=== PATIENT | female | born 2000 | race Caucasian/White ===

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

== ENCOUNTER 2020-06-07 13:07 | Emergency (ER) | payer BC, OTHER ==
[~2020-06-07] VITALS: Ht 165.1 cm; Wt 58.3 kg
[~2020-06-07 13:07] MED LIST: ALBU2.5V8 IH; AZIT250T PO; IPRA3AMP29 NEB; PRED20TA PO
--- NOTE | 2020-06-07 14:19 | PHYS DOC ---
Past History Past Medical History: Anxiety, Depression Past Surgical History: Other Additional Past Surgical Histo: wisdom teeth Alcohol Use: None Adult General Chief Complaint Chief Complaint: SUICIDAL IDEATION [facility] HPI Patient is a 19F with a known past medical history of anxiety and depression now presenting to emergency department complaining new onset of suicidal ideation and depression. Patient is over the last month and a half she is having worsening sensations of depression suicidality without a definitive plan. Patient was previously on Zoloft and lorazepam but this was discontinued a year ago when her symptoms had improved. Patient notes that she is been having worsening symptoms and is been attempting to obtain psychiatric evaluation however the soonest appointment she can get is in 6 weeks. Patient was hoping to get evaluated sooner so she can get antidepressive medications. Patient is currently denying any chest pain, nausea, vomiting, fever, chills, headache, lightheadedness or dizziness. Review of Systems Review of Systems Constitutional: Denies fever or chills [] Eyes: Denies change in visual acuity, redness, or eye pain [] HENT: Denies nasal congestion or sore throat [] Respiratory: Denies cough or shortness of breath [] Cardiovascular: No additional information not addressed in HPI [] GI: Denies abdominal pain, nausea, vomiting, bloody stools or diarrhea [] : Denies dysuria or hematuria [] Musculoskeletal: Denies back pain or joint pain [] Integument: Denies rash or skin lesions [] Neurologic: Denies headache, focal weakness or sensory changes [] Endocrine: Denies polyuria or polydipsia [] All other systems were reviewed and found to be within normal limits, except as documented in this note. Allergies Allergies Allergies Coded Allergies Type Severity Reaction Last Updated Verified No Known Drug Allergies 06/07/17 No Physical Exam Physical Exam Constitutional: Well developed, well nourished, no acute distress, non-toxic appearance. [] HENT: Normocephalic, atraumatic, bilateral external ears normal, oropharynx moist, no oral exudates, nose normal. [] Eyes: PERRLA, EOMI, conjunctiva normal, no discharge. [] Neck: Normal range of motion, no tenderness, supple, no stridor. [] Cardiovascular:Heart rate regular rhythm, no murmur [] Lungs & Thorax: Bilateral breath sounds clear to auscultation [] Abdomen: Bowel sounds normal, soft, no tenderness, no masses, no pulsatile masses. [] Skin: Warm, dry, no erythema, no rash. [] Back: No tenderness, no CVA tenderness. [] Extremities: No tenderness, no cyanosis, no clubbing, ROM intact, no edema. [] Neurologic: Alert and oriented X 3, normal motor function, normal sensory function, no focal deficits noted. [] Psychologic: Affect normal, judgement normal, mood normal. [] Current Patient Data Vital Signs Vital Signs Date Time Temp Pulse Resp B/P (MAP) Pulse Ox O2 Delivery O2 Flow Rate FiO2 06/07/20 13:52 98.6 97 18 118/77 (91) 98 Room Air EKG EKG [] Radiology/Procedures Radiology/Procedures [] Heart Score Risk Factors: Risk Factors: DM, Current or recent (<one month) smoker, HTN, HLP, family history of CAD, obesity. Risk Scores: Risk Factors: DM, Current or recent (<one month) smoker, HTN, HLP, family history of CAD, obesity. Course & Med Decision Making Course & Med Decision Making Pertinent Labs and Imaging studies reviewed. (See chart for details) 19f presenting the emergency department with generalized depression and feelings of suicidality without an obvious plan. PAT evaluation completed and a safety plan was completed and the patient is planning to follow-up with her side. No indication for an acute admission. Patient and her mother both verbalized agreement with discharge plan Dragon Disclaimer Dragon Disclaimer This electronic medical record was generated, in whole or in part, using a voice recognition dictation system. Departure Departure: Impression: Primary Impression: Depression Additional Impression: Anxiety Disposition: 01 DC HOME SELF CARE/HOMELESS Condition: GOOD Referrals: PCP,NO (PCP) Patient Instructions: Depression, Adult Additional Instructions: EMERGENCY DEPARTMENT GENERAL DISCHARGE INSTRUCTIONS Thank you for coming to [facility] Emergency Department (ED) today and trusting us with you care. We trust that you had a positive experience in our Emergency Department. If you wish to speak to the department management, you may call the Director at [phone]. YOUR FOLLOW UP INSTRUCTIONS ARE FOLLOWS: 1. Do you have a private Doctor? If you do not have a private doctor, please ask for a resource list of physicians or clinics that may be able to assist you with follow up care. 2. The Emergency Physicain has interpreted your x-rays. The X-Ray specialist will also review them. If there is a change in the findings, you will be notified in 48 hours when at all possible. 3. A lab test or culture has been done, your results will be reviewed and you will be notified if you need a change in treatment. ADDITIONAL INSTRUCTIONS AND INFORMATION: 1. Your care today has been supervised by a physician who is specially trained in emergency care. Many problems require more than one evaluation for a complete diagnosis and treatment. We recommend that you schedule your follow up appointment as recommended to ensure complete treatment of you illness or injury. If you are unable to obtain follow up care and continue to have a problem, or if your condition worsens, we recommend that you return to the ED. 2. We are not able to safely determine your condition over the phone nor are we able to give sound medical advice over the phone. For these safety reasons, if you call for medical advice we will ask you to come to the ED for further evaluation. 3. If you have any questions regarding these discharge instructions please call the ED at [phone]. SAFETY INFORMATION: In the interest of safety, wellness, and injury prevention; we encourage you to wear your sealbelt, if you smoke; quite smoking, and we encourage family to use a protective helmet for bicycling and other sporting events that present an increased risk for head injury. IF YOUR SYMPTOMS WORSEN OR NEW SYMPTOMS DEVELOP, OR YOU HAVE CONCERNS ABOUT YOUR CONDITION; OR IF YOUR CONDITION WORSENS WHILE YOU ARE WAITING FOR YOUR FOLLOW UP APPOINTMENT; EITHER CONTACT YOUR PRIMARY CARE DOCTOR, THE PHYSICIAN WHOSE NAME AND NUMBER YOU WERE GIVEN, OR RETURN TO THE ED IMMEDIATELY. Problem Qualifiers JOSUE LUTZ MD Jun 07, 2020 14:19
[2020-06-07] MEDS ORDERED: LORazepam 1 MG TABLET PO ONE (14:30)
[2020-06-07 15:35] VITALS: BP 133/77
== END 2020-06-07 15:40 | disposition home or self-care (01) ==
LOC: ER 13:07
DX: F32.9 Major depressive disorder, single episode, unspecified (principal); F41.9 Anxiety disorder, unspecified
CPT/HCPCS: 99281

== ENCOUNTER 2020-10-31 11:58 | Emergency (ER) | payer OTHER ==
[~2020-10-31] VITALS: Ht 165.1 cm; Wt 58.3 kg
--- NOTE | 2020-10-31 12:28 | PHYS DOC ---
Past History Past Medical History: Anxiety, Depression (ETHEL VILLASENOR APRN) Past Surgical History: Other Additional Past Surgical Histo: wisdom teeth (ETHEL VILLASENOR APRN) Alcohol Use: None (ETHEL VILLASENOR APRN) General Adult EDM: Chief Complaint: SUICIDAL IDEATION HPI: HPI: Patient is a 19-year-old female who presents to the ER today with her mother for suicidal ideation. Patient reports that she lives with her boyfriend and her boyfriend's parents and her and her boyfriend have been fighting lately and told her that they needed to take a break and he has not been to their home since Sunday. She reports following this she started having increased anxiety and pression. Patient does not have a plan of how she would hurt herself. She does practice self-harm by cutting her wrists and punching herself. She has no attempts of suicide in the past. Patient takes Zoloft. She reports having a appointment at the [facility] on November 10 but has not followed up outpatient anywhere previously. Patient reports that she did not take her Zoloft today. She denies homicidal ideation. Patient has no physical complaints at this time. (ETHEL VILLASENOR APRN) Review of Systems: Review of Systems: 14 body systems of the review of systems have been reviewed. See HPI for pertinent positive and negative responses, otherwise all other systems are negative, nonpertinent or noncontributory (ETHEL VILLASENOR APRN) Allergies: Allergies: Allergies Coded Allergies Type Severity Reaction Last Updated Verified No Known Drug Allergies 06/07/17 No (ETHEL VILLASENOR APRN) Physical Exam: PE: Constitutional: Well developed, well nourished, no acute distress, non-toxic appearance. [] HENT: Normocephalic, atraumatic Eyes: PERRL, conjunctiva normal, no discharge. [] Neck: Normal range of motion, no stridor Cardiovascular:Heart rate regular rhythm, no murmur [] Lungs & Thorax: Bilateral breath sounds clear to auscultation [] Skin: Warm, dry, no erythema, no rash. [] Back: No tenderness, normal range of motion [] Extremities: No tenderness, no cyanosis, no clubbing, ROM intact, no edema. [] Neurologic: Alert and oriented X 3, normal motor function, normal sensory function, no focal deficits noted. [] Psychologic: Judgment normal, patient is emotionally upset and is crying at this time (ETHEL VILLASENOR APRN) Current Patient Data: Labs: Laboratory Tests Test 10/31/20 12:10 10/31/20 13:02 White Blood Count 7.0 x10^3/uL Red Blood Count 4.50 x10^6/uL Hemoglobin 13.6 g/dL Hematocrit 40.2 % Mean Corpuscular Volume 89 fL Mean Corpuscular Hemoglobin 30 pg Mean Corpuscular Hemoglobin Concent 34 g/dL Red Cell Distribution Width 13.0 % Platelet Count 311 x10^3/uL Neutrophils (%) (Auto) 84 % Lymphocytes (%) (Auto) 13 % Monocytes (%) (Auto) 4 % Eosinophils (%) (Auto) 0 % Basophils (%) (Auto) 0 % Neutrophils # (Auto) 5.9 x10^3uL Lymphocytes # (Auto) 0.9 x10^3/uL Monocytes # (Auto) 0.2 x10^3/uL Eosinophils # (Auto) 0.0 x10^3/uL Basophils # (Auto) 0.0 x10^3/uL Urine Collection Type Unknown Urine Color Yellow Urine Clarity Clear Urine pH 6.0 Urine Specific [place] >=1.030 Urine Protein 30 mg/dl Urine Glucose (UA) Neg mg/dL Urine Ketones (Stick) >=160 mg/dL Urine Blood Trace Urine Nitrite Neg Urine Bilirubin Small Urine Urobilinogen Dipstick 0.2 mg/dL Urine Leukocyte Esterase Neg Urine RBC 0 /HPF Urine WBC Occ /HPF Urine Squamous Epithelial Cells Mod /LPF Urine Bacteria Few /HPF Sodium Level 141 mmol/L Potassium Level 4.0 mmol/L Chloride Level 105 mmol/L Carbon Dioxide Level 19 mmol/L Anion Gap 17 Blood Urea Nitrogen 22 mg/dL Creatinine 0.8 mg/dL Estimated GFR (Cockcroft-Gault) 92.4 BUN/Creatinine Ratio 28 Glucose Level 75 mg/dL Calcium Level 9.0 mg/dL Total Bilirubin 0.8 mg/dL Aspartate Amino Transf (AST/SGOT) 13 U/L Alanine Aminotransferase (ALT/SGPT) 17 U/L Alkaline Phosphatase 56 U/L Total Protein 7.6 g/dL Albumin 4.3 g/dL Albumin/Globulin Ratio 1.3 Bedside Urine HCG, Qualitative hcg negative Current Medications Medications (Trade) Dose Ordered Sig/Andrei Route PRN Reason Start Time Stop Time Status Last Admin Dose Admin Lorazepam (Ativan) 1 mg 1X ONCE PO 10/31/20 12:30 10/31/20 12:42 DC 10/31/20 12:47 (ETHEL VILLASENOR APRN) EKG: EKG: EKG performed at 1523 by ER staff shows sinus tach, no STEMI by Dr. Medina at 1529. (ETHEL VILLASENOR APRN) Radiology/Procedures: Radiology/Procedures: [] (ETHEL VILLASENOR APRN) Heart Score: C/O Chest Pain: No Risk Factors: Risk Factors: DM, Current or recent (<one month) smoker, HTN, HLP, family history of CAD, obesity. Risk Scores: Score 0 - 3: 2.5% MACE over next 6 weeks - Discharge Home Score 4 - 6: 20.3% MACE over next 6 weeks - Admit for Clinical Observation Score 7 - 10: 72.7% MACE over next 6 weeks - Early Invasive Strategies (ETHEL VILLASENOR APRN) Course & Med Decision Making: Course & Med Decision Making Pertinent Labs and Imaging studies reviewed. (See chart for details) 19-year-old female who presents to the ER for suicidal ideation. Screening lab work was performed in the ER. PAT team evaluated patient in the ER. Lab work in the ER was unremarkable. Quinn with the PAT team discussed discharging the patient to [facility] for medication stabilization but patient reported that she would leave as soon as she got there. At this time we are attempting to get patient admitted to [facility] or [facility]. 2105: Patient was admitted under the service of Dr. Anthony at [facility]. Care transferred at this time. (ETHEL VILLASENOR APRN) Course & Med Decision Making Did not see or evaluate patient. Agree with TEACHING ARTIST's work-up and disposition per note. (MAHESH PAGAN MD) Nicolas Disclaimer: Nicolas Disclaimer: This electronic medical record was generated, in whole or in part, using a voice recognition dictation system. (ETHEL VILLASENOR APRN) Departure Departure: Impression: Primary Impression: Suicidal ideation Disposition: 02 SHORT TERM HOSPITAL Condition: GOOD Referrals: PCP,NO (PCP) ETHEL VILLASENOR APRN Oct 31, 2020 12:27 MAHESH PAGAN MD Nov 01, 2020 00:43
[2020-10-31] MEDS ORDERED: LORazepam 1 MG TABLET PO ONE ×2 (12:30→20:00)
[2020-10-31 13:18] LABS: BASO % 0 % (0-3); EOS % 0 % (0-3); HEMATOCRIT 40.2 % (36.0-47.0); HEMOGLOBIN 13.6 g/dL (12.0-15.5); LYMPH # 0.9 x10^3/uL (1.0-4.8); LYMPH % 13 % (24-48); MEAN CORPUSCULAR HEMOGLOBIN 30 pg (25-35); MEAN CORPUSCULAR HGB CONC 34 g/dL (31-37); MEAN CORPUSCULAR VOLUME 89 fL (79-100); MONO # 0.2 x10^3/uL (0.0-1.1); MONO % 4 % (0-9); NEUT # 5.9 x10^3uL (1.8-7.7); NEUT % 84 % (31-73); PLATELET COUNT 311 x10^3/uL (140-400)
[2020-10-31 13:23] LABS: CREATININE 0.8 mg/dL (0.6-1.0); GFR 92.4
[2020-10-31 13:29] LABS: ALBUMIN 4.3 g/dL (3.4-5.0); ALBUMIN/GLOBULIN RATIO 1.3 (1.0-1.7); TOTAL BILIRUBIN 0.8 mg/dL (0.2-1.0); TOTAL PROTEIN 7.6 g/dL (6.4-8.2)
[2020-10-31 13:32] LABS: BILIRUBIN,URINE SMALL (NEG); CLARITY,URINE CLEAR; COLOR,URINE YELLOW; GLUCOSE,URINE NEG (NEG)
[2020-10-31 13:33] LABS: NITRITE,URINE NEG (NEG); UROBILINOGEN,URINE 0.2 mg/dL (0.2 mg/dL)
[2020-10-31 13:34] LABS: BACTERIA,URINE FEW /HPF (0-FEW); RBC,URINE 0 /HPF (0-2); SQUAMOUS EPITHELIAL CELL,UR MOD /LPF; WBC,URINE OCC /HPF (0-4)
--- NOTE | 2020-10-31 15:32 | EKG ---
[address] [address] Test Date: 2020-10-31 Test Time: 15:23:17 Pat Name: ISAMAR YANES Department: Room: Gender: F Tire Service Supervisor: DIAN : 2000 Requested By: ETHEL VILLASENOR Order Number: [id number] Reading MD: Measurements Intervals [place] Rate: 106 P: 26 [place]: 118 QRS: 16 QRSD: 104 T: 38 QT: 354 QTc: 472 Interpretive Statements SINUS TACHYCARDIA S1,S2,S3 PATTERN INCOMPLETE RIGHT BUNDLE BRANCH BLOCK CONSIDER RIGHT VENTRICULAR HYPERTROPHY POSSIBLY ABNORMAL ECG RI6.02 No previous ECG available for comparison
[2020-10-31 16:03] LABS: AMPHETAMINE/METHAMPHETAMINE NEG (NEG); BARBITURATES NEG (NEG); BENZODIAZEPINES POS (NEG); CANNABINOIDS POS (NEG); COCAINE NEG (NEG); METHADONE NEG (NEG); OPIATES NEG (NEG); PHENCYCLIDINE NEG (NEG)
--- NOTE | 2020-10-31 19:03 | NUR ---
Jesenia gtz interviewing patient
[2020-10-31 20:46] VITALS: BP 122/84
== END 2020-10-31 21:58 | disposition short-term general hospital (02) ==
LOC: ER 11:58
DX: R45.851 Suicidal ideations (principal); F41.9 Anxiety disorder, unspecified; F32.9 Major depressive disorder, single episode, unspecified; Z20.822 Contact with and (suspected) exposure to COVID-19
CPT/HCPCS: 36415; 80053; 80307; 81001; 81025; 85025; 87426; 93005; 99285; C9803; U0003